=== PATIENT | male | born 1965 | race African-American/Black ===

== ENCOUNTER 2017-02-07 03:31 | Emergency (ER) | payer MEDICAID ==
[~2017-02-07] VITALS: Ht 190.5 cm; Wt 86.0 kg
[2017-02-07] MEDS: SODIUM CHLORIDE 0.9% 1,000 ML IV ONE (05:39)
[2017-02-07 05:40] LABS: BASOPHILS % 0.2 % (0.0-2.0); EOSINOPHILS % 0.4 % (0.0-5.0); HEMOGLOBIN. 12.6 g/dL (14.0-18.0); LYMPHOCYTES % 13.1 % (20.0-50.0); MEAN CORPUSCULAR HEMOGLOBIN 27.5 pg (28.0-32.0); MEAN CORPUSCULAR VOLUME 82.7 fL (80.0-94.0); MEAN PLATELET VOLUME 7.3 fl (7.4-10.4); MONOCYTES % 4.1 % (2.0-8.0); NEUTROPHILS % 82.2 % (40.0-76.0); PLATELET 128 x1000/uL (130-400); RED BLOOD CELL COUNT 4.59 mill/uL (4.7-6.1); RED CELL DISTRIBUTION WIDTH 13.9 % (11.6-14.6)
[2017-02-07] MEDS: MORPHINE SULFATE 4 MG/ML CPJ (NOT FOR IM USE) IV STA (05:45)
[2017-02-07] MEDS: ONDANSETRON HCL 4MG/2ML VIAL IV STA (05:45)
[2017-02-07 05:47] LABS: INR 1.1; PROTHROMBIN TIME 11.4 sec
[2017-02-07 05:54] LABS: CARBON DIOXIDE 30 mEq/L (21-32); CHLORIDE 105 mEq/L (98-107)
[2017-02-07 06:49] LABS: GLUCOSE URINE NEGATIVE (NEGATIVE); KETONES URINE NEGATIVE (NEGATIVE); LEUKOCYTE ESTERASE URINE NEGATIVE (NEGATIVE); NITRITE URINE NEGATIVE (NEGATIVE); OCCULT BLOOD URINE NEGATIVE (NEGATIVE); PH URINE 7.5 (4.5-8.0); PROTEIN URINE NEGATIVE (NEGATIVE); SPECIFIC GRAVITY URINE 1.025 (1.005-1.030)
[2017-02-07 06:55] LABS: CLARITY URINE HAZY (CLEAR); COLOR URINE YELLOW (YELLOW)
[2017-02-07 07:28] VITALS: BP 142/89
[2017-02-07] MEDS ORDERED: IOHEXOL-300 100 ML BOTTLE ONE (10:55)
[2017-02-07] MEDS ORDERED: SODIUM CHLORIDE 0.9% 10ML VIAL ONE (10:55)
== END 2017-02-07 08:14 | disposition home or self-care (01) ==
LOC: ER 03:31
DX: I10 Essential (primary) hypertension (principal); F17.200 Nicotine dependence, unspecified, uncomplicated; R10.9 Unspecified abdominal pain; R11.0 Nausea
CPT/HCPCS: 36415; 71010; 74177; 80053; 81003; 83605; 83690; 85025; 85610; 96361; 96374; 96375; 99285; A4216; J2270; J2405; J7030; Q9967; Z7610

== ENCOUNTER 2019-08-05 23:04 | Emergency (ER) | payer MEDICAID ==
[~2019-08-05] VITALS: Ht 190.5 cm; Wt 91.0 kg
[2019-08-05 23:13] VITALS: BP 159/100
== END 2019-08-06 00:30 | disposition left against medical advice (07) ==
LOC: ER 23:04
DX: Z53.21 Procedure and treatment not carried out due to patient leaving prior to being seen by health care provider (principal)

== ENCOUNTER 2019-12-03 19:58 | Emergency (ER) | payer MEDICAID ==
[~2019-12-03] VITALS: Ht 175.3 cm; Wt 79.0 kg
[2019-12-03] MEDS ORDERED: HYDROCODONE/ACETAMINOPHEN 5/325MG TABLET PO ONE (20:45)
[2019-12-03] MEDS ORDERED: IBUPROFEN 600MG TABLET PO ONE (20:45)
[2019-12-03] MEDS ORDERED: CEPHALEXIN 250MG CAPSULE PO ONE (21:45)
[2019-12-03] MEDS ORDERED: SULFAMETHOXAZOLE/TRIMETHOPRIM 800/160MG TABLET PO ONE (21:45)
[2019-12-03 22:18] VITALS: BP 146/79
== END 2019-12-03 22:19 | disposition home or self-care (01) ==
LOC: ER 19:58
DX: L03.115 Cellulitis of right lower limb (principal); M25.461 Effusion, right knee; S80.211A Abrasion, right knee, initial encounter; Y04.2XXA Assault by strike against or bumped into by another person, initial encounter; Y93.89 Activity, other specified; Y92.89 Other specified places as the place of occurrence of the external cause; I10 Essential (primary) hypertension; F12.90 Cannabis use, unspecified, uncomplicated; Z85.9 Personal history of malignant neoplasm, unspecified
CPT/HCPCS: 73562; 99283

== ENCOUNTER 2020-01-02 00:29 | Emergency (ER) | payer MEDICAID ==
[~2020-01-02] VITALS: Ht 188 cm; Wt 84.0 kg
[2020-01-02 01:13] VITALS: BP 151/88
[2020-01-02] MEDS ORDERED: ACETAMINOPHEN 325MG TABLET PO STA (01:59)
[2020-01-02 02:48] LABS: BASOPHILS % 0.9 % (0.0-2.0); EOSINOPHILS % 1.7 % (0.0-5.0); HEMATOCRIT. 28.2 % (42.0-52.0); HEMOGLOBIN. 9.4 g/dL (14.0-18.0); LYMPHOCYTES % 27.1 % (20.0-50.0); MEAN CORPUSCULAR HEMOGLOBIN 27.2 pg (28.0-32.0); MEAN CORPUSCULAR VOLUME 81.9 fL (80.0-94.0); MEAN PLATELET VOLUME 6.9 fl (7.4-10.4); MONOCYTES % 8.7 % (2.0-8.0); NEUTROPHILS % 61.6 % (40.0-76.0); PLATELET 292 x1000/uL (130-400); RED BLOOD CELL COUNT 3.44 mill/uL (4.7-6.1); RED CELL DISTRIBUTION WIDTH 17.1 % (11.6-14.6)
[2020-01-02 02:51] LABS: CHLORIDE 103 mEq/L (98-107)
[2020-01-02 02:57] LABS: D-DIMER 1.5 mg/L FEU (<0.50)
== END 2020-01-02 06:52 | disposition home or self-care (01) ==
LOC: ER 00:29
DX: Z03.818 Encounter for observation for suspected exposure to other biological agents ruled out (principal); R06.02 Shortness of breath; F91.8 Other conduct disorders; R53.83 Other fatigue; R53.81 Other malaise; M79.18 Myalgia, other site; R45.1 Restlessness and agitation; R19.7 Diarrhea, unspecified; Z85.9 Personal history of malignant neoplasm, unspecified
CPT/HCPCS: 36415; 80053; 82728; 83615; 83690; 83880; 84145; 85025; 85379; 85384; 86140; 87040; 99283; C9803; U0003

== ENCOUNTER 2020-02-06 19:52 | Emergency (ER) | payer MEDICAID ==
[~2020-02-06] VITALS: Ht 180.3 cm; Wt 78.0 kg
[2020-02-06] MEDS ORDERED: SODIUM CHLORIDE 0.9% 1,000 ML IV ONE (20:25)
[2020-02-06] MEDS ORDERED: LORAZEPAM 2MG/ML CPJ IV ONE (20:30)
[2020-02-06 21:14] LABS: BASOPHILS % 0.4 % (0.0-2.0); EOSINOPHILS % 2.4 % (0.0-5.0); HEMATOCRIT. 39.2 % (42.0-52.0); HEMOGLOBIN. 12.9 g/dL (14.0-18.0); LYMPHOCYTES % 32.2 % (20.0-50.0); MEAN CORPUSCULAR HEMOGLOBIN 26.5 pg (28.0-32.0); MEAN CORPUSCULAR VOLUME 80.8 fL (80.0-94.0); MEAN PLATELET VOLUME 7.4 fl (7.4-10.4); PLATELET 220 x1000/uL (130-400); RED BLOOD CELL COUNT 4.86 mill/uL (4.7-6.1); RED CELL DISTRIBUTION WIDTH 16.1 % (11.6-14.6)
[2020-02-06 21:21] LABS: CHLORIDE 106 mEq/L (98-107)
[2020-02-06 21:25] LABS: ETHANOL BLOOD < 10 mg/dL
[2020-02-06 21:29] LABS: CREATINE KINASE 63 IU/L (39-308)
[2020-02-07 00:34] LABS: CLARITY URINE CLEAR (CLEAR); COLOR URINE YELLOW (YELLOW); KETONES URINE NEGATIVE (NEGATIVE); LEUKOCYTE ESTERASE URINE NEGATIVE (NEGATIVE); NITRITE URINE NEGATIVE (NEGATIVE); OCCULT BLOOD URINE NEGATIVE (NEGATIVE); PROTEIN URINE TRACE (NEGATIVE); SPECIFIC GRAVITY URINE 1.028 (1.005-1.030)
[2020-02-07 00:55] VITALS: BP 155/79
[2020-02-07 01:03] LABS: *AMPHETAMINES SCREEN URINE NEGATIVE (NEGATIVE); *BARBITURATES SCREEN URINE NEGATIVE (NEGATIVE); CANNABINOID URINE SCREEN PRESUMTIVE POSITIVE (NEGATIVE)
[2020-02-07 01:04] LABS: *BENZODIAZEPINES SCREEN URINE NEGATIVE (NEGATIVE); *COCAINE SCREEN URINE PRESUMTIVE POSITIVE (NEGATIVE); METHADONE URINE SCREEN NEGATIVE (NEGATIVE); OPIATES URINE SCREEN NEGATIVE (NEGATIVE); PHENCYCLIDINE URINE SCREEN PRESUMTIVE POSITIVE (NEGATIVE)
== END 2020-02-07 02:40 | disposition home or self-care (01) ==
LOC: ER 19:52
DX: R42 Dizziness and giddiness (principal); R53.1 Weakness; R51 Headache; I10 Essential (primary) hypertension; F12.10 Cannabis abuse, uncomplicated
CPT/HCPCS: 36415; 70450; 71045; 80053; 80305; 80320; 81003; 82140; 82550; 83880; 84443; 84484; 85025; 93005; 96361; 96374; 99285; J2060; J7030; G0480